=== PATIENT | male | born 1970 | race African-American/Black ===

== ENCOUNTER 2017-01-05 04:19 | Emergency (ER) | payer MEDICARE, MEDICAID ==
--- NOTE | 2017-01-05 04:47 | ER Document Report ---
ED General - General Chief Complaint: Chest Pain > 30 Stated Complaint: CHEST PAIN Time Seen by Provider: 01/05/17 04:39 Notes: Patient is a 46-year-old male that comes emergency department 2 complaints. First complaint is pain in the left side of his chest, worse with cough or deep breath, also hurts in his chest when he moves his left arm. Symptoms started yesterday. He has had a cough with some congestion for 1 week. He smokes. He denies fever. He denies shortness of breath. He denies trauma. He denies recreational drug use. He denies family history or personal history of cardiovascular disease. Second complaint is loss of vision in his right eye. He states that it started getting blurry over time but then yesterday morning he woke up and now he can only see light flashes in the right eye. Left eye vision is normal. He denies pain in his eye. TRAVEL OUTSIDE OF THE [place] IN LAST 30 DAYS: No - Related Data Allergies/Adverse Reactions: hydromorphone HCl [From Dilaudid] Allergy (Severe, Verified 01/05/17 04:30) Hives morphine [Morphine] Allergy (Severe, Verified 01/05/17 04:30) Hives Penicillins Allergy (Intermediate, Verified 01/05/17 04:30) N&V tramadol [From Ultram] Allergy (Verified 01/05/17 04:30) Home Medications: Current Home Medications No Home Medications 01/05/17 [History] Past Medical History - General Information source: Patient - Social History Smoking Status: Current Every Day Smoker Chew tobacco use (# tins/day): No Smoking Education Provided: Yes - <3 min Lives with: Family Family History: Reviewed & Not Pertinent, CAD - [place]. Patient has suicidal ideation: No Patient has homicidal ideation: No - Past Medical History Cardiac Medical History: Reports: Hx Hypertension Denies: Hx Heart Attack Pulmonary Medical History: Denies: Hx Asthma Neurological Medical History: Reports: Hx Seizures - "medication related". Denies: Hx Cerebrovascular Accident Renal/ Medical History: Denies: Hx Peritoneal Dialysis Musculoskeltal Medical History: Reports Hx Arthritis Past Surgical History: Reports: Hx Orthopedic Surgery - bilateral hip reconstruction - Immunizations Hx Diphtheria, Pertussis, Tetanus Vaccination: No Review of Systems - Review of Systems Constitutional: No symptoms reported EENT: See HPI Cardiovascular: See HPI Respiratory: See HPI Gastrointestinal: No symptoms reported Genitourinary: No symptoms reported Male Genitourinary: No symptoms reported Musculoskeletal: See HPI Skin: No symptoms reported Hematologic/Lymphatic: No symptoms reported Neurological/Psychological: No symptoms reported Physical Exam - Vital signs Vitals: Resp BP Pulse Ox 15 125/91 H 97 01/05/17 04:31 01/05/17 04:31 01/05/17 04:31 Interpretation: Normal - General General appearance: Appears well, Alert In distress: None - HEENT Head: Normocephalic, Atraumatic Eyes: Other - Right eye with a cataract noted, no discharge, clear conjunctivae , normal anterior chamber, unremarkable otherwise. Normal EOMs. Pupils: PERRL Ears: Normal Sinus: Normal Nasal: Normal Mouth/Lips: Normal Mucous membranes: Normal Pharynx: Normal Neck: Normal - Respiratory Respiratory status: No respiratory distress Chest status: Tender - Tender over the left pectoralis musculature, worse with movement of the left arm, specific with palpation and reproducible. Breath sounds: Normal. No: Decreased air movement, Nonproductive cough, Wheezing Chest palpation: Normal - Cardiovascular Rhythm: Regular. No: Tachycardia Heart sounds: Normal auscultation, S1 appreciated, S2 appreciated Murmur: No - Abdominal Inspection: Normal Distension: No distension Bowel sounds: Normal Tenderness: Nontender. No: Tender, Guarding Organomegaly: No organomegaly - Back Back: Normal, Nontender - Extremities General upper extremity: Normal inspection, Nontender, Normal color, Normal ROM , Normal temperature General lower extremity: Normal inspection, Nontender, Normal color, Normal ROM , Normal temperature, Normal weight bearing. No: Apollo's sign - Neurological Neuro grossly intact: Yes Cognition: Normal Orientation: AAOx4 Pamela Coma Scale Eye Opening: Spontaneous Pamela Coma Scale Verbal: Oriented Pamela Coma Scale Motor: Obeys Commands [place] Coma Scale Total: 15 Speech: Normal Motor strength normal: LUE, RUE, LLE, RLE Sensory: Normal - Psychological Associated symptoms: Normal affect, Normal mood - Skin Skin Temperature: Warm Skin Moisture: Dry Skin Color: Normal Course - Re-evaluation Re-evalutation: Patient with very reproducible chest wall tenderness specifically over the left pectoralis muscle, worse with movement of the arm and palpation over the area. Patient with occasional mild cough, mild congestion. Normal neurological exam, he is well-appearing, he does not appear to be in any distress. Vital signs unremarkable. EKG showing sinus rhythm, right bundle branch block, no T-wave inversions or ST segment changes, no significant change from prior. Chest x-ray unremarkable. CBC, chemistry generally unremarkable, troponin is negative despite patient reporting constant symptoms for 2 days. Appears to be musculoskeletal. Very low suspicion of ACS. Patient does reported visual loss with only single light with his right eye. On examination he clearly has a cataract. This is fairly surprising but consistent with his symptoms. Discussed with Dr. Munoz. Patient will be referred to ophthalmology for close follow-up. Urged patient that he definitely should have this performed because of his age and to make sure there is no other abnormality in addition to the cataract. Patient states that he will follow closely. Discussed all details of workup, patient treated with dexamethasone and Toradol for his symptoms, patient states understanding and agreement. - Vital Signs Vital signs: Temp Pulse Resp BP Pulse Ox 17 118/91 H 94 01/05/17 05:01 01/05/17 05:01 01/05/17 05:01 - Laboratory Result Diagrams: 01/05/17 04:40 01/05/17 04:40 Laboratory results interpreted by me: 01/05/17 01/05/17 04:40 04:40 MCV 99 H MCH 34.2 H Sodium 145.1 H Calcium 10.3 H Discharge - Discharge Clinical Impression: Cough, Left-sided chest wall pain, Change in vision Condition: Stable Disposition: HOME, SELF-CARE Additional Instructions: Your workup does not show any concerning abnormalities. Your examination indicates pain over her left pectoralis chest wall muscle, this is most likely from your upper respiratory infection, this appears to be viral, no evidence of pneumonia or bacterial infection on your workup. You have been treated for this , take [id number] medication to help with cough and pain for symptom management. Your eye examination is consistent with a cataract. Follow-up closely with the ophthalmology referral, call for your appointment. Stop smoking, follow-up with primary care, return to emergency department for any concerning or worsening symptoms including difficulty breathing, spiking fever, increased pain, vomiting, or any other concerning symptoms. Referrals: SUSANA HAWKINS MD [ACTIVE STAFF] - Follow up in 3-5 days
[2017-01-05 05:03] LABS: ABSOLUTE LYMPHOCYTES (AUTO) 2.4 10^3/uL (0.5-4.7); ABSOLUTE MONOCYTES (AUTO) 0.6 10^3/uL (0.1-1.4); ABSOLUTE NEUT (AUTO) 3.1 10^3/uL (1.7-8.2); BASOPHILS % (AUTO) 0.8 % (0-2); EOSINOPHILS % (AUTO) 0.6 % (0-6); HEMATOCRIT 45.6 % (37.9-51.0); HEMOGLOBIN 15.7 g/dL (13.5-17.0); HGB HCT DIFFERENCE 1.5; LYMPHOCYTES % (AUTO) 39.1 % (13-45); MEAN CORPUSCULAR HEMOGLOBIN 34.2 pg (27.0-33.4); MEAN CORPUSCULAR HGB CONC 34.5 g/dL (32.0-36.0); MEAN CORPUSCULAR VOLUME 99 fl (80-97); MONOCYTES % (AUTO) 9.4 % (3-13); RED BLOOD COUNT 4.61 10^6/uL (4.35-5.55); RED CELL DISTRIBUTION WIDTH 12.9 % (11.5-14.0); SEGMENTED NEUTROPHILS % (AUTO) 50.1 % (42-78); WHITE BLOOD COUNT 6.2 10^3/uL (4.0-10.5)
[2017-01-05 05:16] LABS: ALANINE AMINOTRANSFERASE 49 U/L (21-72); ALBUMIN 4.9 g/dL (3.5-5.0); ALKALINE PHOSPHATASE 79 U/L (38-126); ANION GAP 15 (5-19); ASPARTATE AMINO TRANSFERASE 25 U/L (17-59); BILIRUBIN,DIRECT 0.3 mg/dL (0.0-0.4); BLOOD UREA NITROGEN 16 mg/dL (7-20); CALCIUM 10.3 mg/dL (8.4-10.2); CARBON DIOXIDE 27 mmol/L (22-30); CHLORIDE 103 mmol/L (98-107); CREATINE KINASE 132 U/L (55-170); CREATININE RESULT 0.82 mg/dL (0.52-1.25); GLUCOSE 101 mg/dL (75-110); POTASSIUM 3.8 mmol/L (3.6-5.0); SODIUM 145.1 mmol/L (137-145); TOTAL PROTEIN 7.6 g/dL (6.3-8.2)
--- NOTE | 2017-01-05 05:28 | RADIOLOGY REPORT (SQ) ---
EXAM DESCRIPTION: CHEST SINGLE VIEW COMPLETED DATE/TIME: 01/05/2017 5:03 am REASON FOR STUDY: er 17 chest pain COMPARISON: 04/25/2015. EXAM PARAMETERS: NUMBER OF VIEWS: One view. TECHNIQUE: Single frontal radiographic view of the chest acquired. RADIATION DOSE: NA LIMITATIONS: None. FINDINGS: LUNGS AND PLEURA: No opacities, masses or pneumothorax. No pleural effusion. MEDIASTINUM AND HILAR STRUCTURES: No masses. Contour normal. HEART AND VASCULAR STRUCTURES: Heart normal in size. Normal vasculature. BONES: No acute findings. HARDWARE: None in the chest. OTHER: No other significant finding. IMPRESSION: NO ACUTE RADIOGRAPHIC FINDING IN THE CHEST. TECHNICAL DOCUMENTATION: JOB ID: [id number] [employer]- All Rights Reserved
[2017-01-05 05:36] LABS: CREATINE KINASE MB 0.83 ng/mL (<4.55); TROPONIN I < 0.012 ng/mL
[2017-01-05] MEDS ORDERED: DEXAMETHASONE SOD PHOS INJ 10 MG/1 ML VIAL IV ONE (05:43)
[2017-01-05] MEDS ORDERED: KETOROLAC TROMETHAMINE INJ/PF 30 MG/1 ML SDV IV ONE (05:43)
[2017-01-05 05:58] VITALS: BP 118/91
--- NOTE | 2017-01-05 19:29 | EKG REPORT ---
SEVERITY:- ABNORMAL ECG - SINUS RHYTHM PROBABLE LEFT ATRIAL ABNORMALITY INCOMPLETE RIGHT BUNDLE BRANCH BLOCK : Confirmed by: Rachel Garcia MD 05-Jan-2017 19:28:52
== END 2017-01-05 06:00 | disposition home or self-care (01) ==
LOC: ER 04:19
DX: R05 Cough (principal); R07.89 Other chest pain; H53.9 Unspecified visual disturbance; F17.200 Nicotine dependence, unspecified, uncomplicated; I10 Essential (primary) hypertension; Z88.6 Allergy status to analgesic agent; Z88.0 Allergy status to penicillin
CPT/HCPCS: 93005; 99285; 96374; 96375; 36415; 82553; 82550; 85025; 80053; 84484; 71010; 93010; J1885; J1100

== ENCOUNTER 2017-02-12 22:01 | Emergency (ER) | payer OTHER, MEDICARE, MEDICAID ==
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
[2017-02-13] MEDS ORDERED: FENTANYL CITRATE INJ/PF 100 MCG/2 ML AMPUL IV ONE (00:22)
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
[2017-02-13] MEDS ORDERED: OXYCODONE HCL IR 5 MG TABLET PO ONE (01:54)
[2017-02-13 03:46] VITALS: BP 146/82
== END 2017-02-13 03:44 | disposition home or self-care (01) ==
LOC: ER 22:01
DX: S82.434A Nondisplaced oblique fracture of shaft of right fibula, initial encounter for closed fracture (principal); S90.511A Abrasion, right ankle, initial encounter; M25.561 Pain in right knee; M25.571 Pain in right ankle and joints of right foot; Y03.0XXA Assault by being hit or run over by motor vehicle, initial encounter; Y93.89 Activity, other specified; Y92.008 Other place in unspecified non-institutional (private) residence as the place of occurrence of the external cause; F17.200 Nicotine dependence, unspecified, uncomplicated; Z98.890 Other specified postprocedural states; Z88.5 Allergy status to narcotic agent
CPT/HCPCS: 99283; 73590; L1830

== ENCOUNTER → 2017-04-27 | Outpatient (CLI) | payer MEDICARE, MEDICAID, OTHER ==
[2017-04-27 11:50] LABS: ABSOLUTE EOSINOPHILS # (AUTO) 0.1 10^3/uL (0.0-0.6); ABSOLUTE LYMPHOCYTES (AUTO) 2.2 10^3/uL (0.5-4.7); ABSOLUTE MONOCYTES (AUTO) 0.5 10^3/uL (0.1-1.4); ABSOLUTE NEUT (AUTO) 3.1 10^3/uL (1.7-8.2); BASOPHILS % (AUTO) 0.8 % (0-2); EOSINOPHILS % (AUTO) 1.5 % (0-6); HEMATOCRIT 39.9 % (37.9-51.0); HEMOGLOBIN 13.3 g/dL (13.5-17.0); LYMPHOCYTES % (AUTO) 37.2 % (13-45); MEAN CORPUSCULAR HEMOGLOBIN 32.9 pg (27.0-33.4); MEAN CORPUSCULAR HGB CONC 33.3 g/dL (32.0-36.0); MEAN CORPUSCULAR VOLUME 99 fl (80-97); PLATELET COUNT 278 10^3/uL (150-450); RED BLOOD COUNT 4.04 10^6/uL (4.35-5.55); RED CELL DISTRIBUTION WIDTH 12.5 % (11.5-14.0); SEGMENTED NEUTROPHILS % (AUTO) 51.5 % (42-78); TOTAL CELLS COUNTED % (AUTO) 100 %
[2017-04-27 12:00] LABS: APPEARANCE,URINE CLEAR; BILIRUBIN,URINE NEGATIVE (NEGATIVE); COLOR,URINE YELLOW; GLUCOSE, URINE NEGATIVE (NEGATIVE); KETONES,URINE NEGATIVE (NEGATIVE); LEUKOCYTE ESTERASE,URINE NEGATIVE (NEGATIVE); NITRITE,URINE NEGATIVE (NEGATIVE); PROTEIN,URINE NEGATIVE (NEGATIVE); URINE SPECIFIC GRAVITY 1.015
--- NOTE | 2017-04-27 12:04 | RADIOLOGY REPORT (SQ) ---
EXAM DESCRIPTION: CHEST PA/LATERAL COMPLETED DATE/TIME: 04/27/2017 10:59 am REASON FOR STUDY: PRE OP COMPARISON: AP upright view. 01/05/2017. EXAM PARAMETERS: NUMBER OF VIEWS: two views TECHNIQUE: Digital Frontal and Lateral radiographic views of the chest acquired. RADIATION DOSE: NA LIMITATIONS: none FINDINGS: LUNGS AND PLEURA: No acute infiltrates or effusions. Minimal bilateral pleural thickening . MEDIASTINUM AND HILAR STRUCTURES: No masses or contour abnormalities. HEART AND VASCULAR STRUCTURES: The heart is normal with normal pulmonary vasculature. . BONES: No acute findings. HARDWARE: None in the chest. OTHER: No other significant finding. IMPRESSION: NO ACUTE DISEASE. TECHNICAL DOCUMENTATION: JOB ID: [id number] 2010 [employer]- All Rights Reserved Reading location - IP/workstation name: [email or web address]
[2017-04-27 12:20] LABS: ANION GAP 8 (5-19); BLOOD UREA NITROGEN 17 mg/dL (7-20); CALCIUM 9.9 mg/dL (8.4-10.2); CARBON DIOXIDE 32 mmol/L (22-30); CHLORIDE 103 mmol/L (98-107); GLUCOSE 55 mg/dL (75-110); POTASSIUM 4.3 mmol/L (3.6-5.0); SODIUM 142.7 mmol/L (137-145)
--- NOTE | 2017-04-27 13:16 | EKG REPORT ---
SEVERITY:- NORMAL ECG - SINUS RHYTHM ST ELEV, PROBABLE NORMAL EARLY REPOL PATTERN : Confirmed by: Eric Mera MD 27-Apr-2017 13:15:51
== END ==
LOC: OD 10:29
PROVIDERS: ATTEND Orthopaedic Surgery
DX: Z01.810 Encounter for preprocedural cardiovascular examination (principal); Z01.812 Encounter for preprocedural laboratory examination; Z01.818 Encounter for other preprocedural examination
CPT/HCPCS: 36415; 71046; 80048; 81001; 85025; 93005; 93010

== ENCOUNTER 2017-06-13 10:00 | Inpatient (IN) | payer OTHER, MEDICARE, MEDICAID ==
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
[2017-06-22] MEDS ORDERED: BUPIVACAINE INJ/PF LIPOSOME/PF 266 MG/20 ML SDV INJ PRN (05:00)
[2017-06-22] MEDS ORDERED: LACTATED RINGERS 1000 ML IV PRN (05:00)
[2017-06-22] MEDS ORDERED: BUPIVACAINE INJ/PF LIPOSOME/PF 266 MG/20 ML SDV ONE (09:10)
[2017-06-22] MEDS ORDERED: THROMBIN (BOVINE) TOPICAL 20000 UNIT VIAL ONE (09:10)
[2017-06-22] MEDS ORDERED: THROMBIN (BOVINE) 5000 UNIT EPITAXIS KIT ONE (09:10)
[2017-06-22] MEDS: OXYCODONE HCL SR 10 MG TABLET PO PRN ×3 (09:30→21:09)
[2017-06-22] MEDS: LANSOPRAZOLE 15 MG TAB.RAP.DR PO PRN ×3 (09:30→21:09)
[2017-06-22] MEDS: VANCOMYCIN HCL 1,000 MG in DEXTROSE 5%-WATER 250 ML IV PRN ×3 (10:42→21:09)
[2017-06-22] MEDS ORDERED: FENTANYL CITRATE INJ/PF 100 MCG/2 ML AMPUL ONE (10:43)
[2017-06-22] MEDS ORDERED: MIDAZOLAM 2 MG/2 ML INJ ONE ×2 (10:44)
[2017-06-22] MEDS ORDERED: PROPOFOL INJ 200 MG/20 ML VIAL IV ONE (10:44)
[2017-06-22] MEDS ORDERED: TRANEXAMIC ACID INJ/PF 1,000 MG/10 ML SDV IV ONE ×3 (10:44→15:00)
[2017-06-22] MEDS ORDERED: DEXAMETHASONE SOD PHOSPHATE INJ 4 MG/1 ML VIAL ONE (10:44)
[2017-06-22] MEDS ORDERED: ONDANSETRON HCL INJ/PF 4 MG/2 ML SDV ONE (10:44)
[2017-06-22] MEDS ORDERED: ACETAMINOPHEN 100 ML IV ONE (10:45)
[2017-06-22] MEDS ORDERED: TETRACAINE HCL/PF 20MG/2ML AMPULE (SPINAL) ONE (10:45)
[2017-06-22] MEDS ORDERED: MORPHINE SULFATE 10 MG/ML INJ ONE (10:45)
[2017-06-22] MEDS: CLINDAMYCIN 600 MG/D5W RTU 600 MG/50 ML RTUPB IV PRN ×5 (11:52→21:16)
[2017-06-22] MEDS: IBUPROFEN 800 MG in NORMAL SALINE 250 ML IV PRN ×3 (12:16→21:09)
[2017-06-22] MEDS ORDERED: MEPERIDINE HCL/PF INJ 25 MG/1 ML DISP.SYRIN IV PRN (12:33)
[2017-06-22] MEDS ORDERED: PROMETHAZINE HCL INJ 25 MG/1 ML VIAL IV PRN ×2 (12:33)
[2017-06-22] MEDS ORDERED: FENTANYL CITRATE INJ/PF 100 MCG/2 ML AMPUL IV PRN ×3 (12:33)
[2017-06-22] MEDS ORDERED: DIPHENHYDRAMINE HCL 50 MG/ML VIAL IV PRN (12:33)
[2017-06-22] MEDS ORDERED: ONDANSETRON 4 MG TAB.RAPDIS PO PRN (13:11)
[2017-06-22] MEDS ORDERED: MAG HYDROX/AL HYDROX/SIMETH SUSP 30 ML UDCUP PO PRN (13:11)
[2017-06-22] MEDS ORDERED: ZOLPIDEM TARTRATE 5 MG TABLET PO PRN (13:11)
[2017-06-22] MEDS ORDERED: ACETAMINOPHEN 325 MG TABLET PO PRN (13:11)
[2017-06-22] MEDS ORDERED: ONDANSETRON HCL INJ/PF 4 MG/2 ML SDV IV PRN (13:11)
--- NOTE | 2017-06-22 13:11 | Operative Report ---
Operative Report DATE OF SURGERY: 06/22/17 PREOPERATIVE DIAGNOSIS: Right knee arthritis OPERATION: Right knee arthroplasty SURGEON: JEREMY FRANK ANESTHESIA: Spinal TISSUE REMOVED OR ALTERED: Bone to pathology ESTIMATED BLOOD LOSS: 100 PROCEDURE: Implants used: Femur: Pam triathlon size 8 CR femur Tibia: 7 tibia Tibial liner: 11 mm CS insert Patella: 38 mm oval patella Procedure with the patient supine on the operating table the right the limb is prepped and draped in a sterile fashion. The limb was elevated for exsanguination and the tourniquet inflated to 280 torr. A standard midline median parapatellar approach the knee is taken. Access is gained to the femoral canal through the intercondylar notch. Intramedullary alignment instrumentation used to resect 10 mm of distal femur in 5 of valgus. Sizing guide indicated a size 8 femur. Appropriate cutting jig is then used to fashion anterior posterior and chamfer cuts. A trial reduction femurs performed and this is judged to be adequate. Attention was next turned to the tibia. Using an extra medullary alignment system 9 millimeters was resected off the lateral tibial plateau. This is sized to a size 7 tibia. A trial reduction was now performed with a 8 femur and a 7 tibia using a 11 millimeters spacer. It is full extension and central patellofemoral tracking. The articular surface the patella was next resected using an oscillating saw. All trial implants were removed. Polymethylmethacrylate is mixed and used to cement the above implants in place. On adequate curing the cement excess cement was removed the tourniquet was deflated hemostasis obtained the wound is then closed in layers using interrupted Vicryl followed by khushi. A sterile compressive dressing was applied and the patient returned to recovery room in satisfactory condition.
[2017-06-22] MEDS: FENTANYL CITRATE INJ/PF 100 MCG/2 ML AMPUL ONE ×3 (13:58→14:23)
--- NOTE | 2017-06-22 15:04 | RADIOLOGY REPORT (SQ) ---
EXAM DESCRIPTION: KNEE RIGHT 2 VIEWS COMPLETED DATE/TIME: 06/22/2017 2:14 pm REASON FOR STUDY: Post OP -Long Cassette in PACU M17.4 OTHER BILATERAL SECONDARY OSTEOARTHRITIS OF KNEE COMPARISON: None. NUMBER OF VIEWS: Two view(s). TECHNIQUE: Digital radiographic images of the right knee post-procedure. LIMITATIONS: None. FINDINGS: BONES: No worrisome or unexpected findings post-procedure. DEVICE: Total knee arthroplasty SOFT TISSUES: No worrisome findings. Expected postoperative soft tissue changes. IMPRESSION: SATISFACTORY POSTOPERATIVE RIGHT KNEE. TECHNICAL DOCUMENTATION: JOB ID: [id number] [employer]- All Rights Reserved Reading location - IP/workstation name: [email or web address][email or web address]
[2017-06-22] MEDS: RINGERS SOLUTION,LACTATED 1,000 ML IV PRN (16:05)
[2017-06-22] MEDS: FENTANYL CITRATE INJ/PF 100 MCG/2 ML AMPUL IV PRN ×3 (16:24→22:31)
[2017-06-22] MEDS: OXYCODONE HCL IR 5 MG TABLET PO PRN (18:00)
[2017-06-22] MEDS: SENNOSIDES/DOCUSATE 8.6-50 MG 1 EACH TABLET PO SCH (18:01)
[2017-06-22] MEDS: PREGABALIN 75 MG CAPSULE PO SCH (18:01)
[2017-06-22] MEDS: IBUPROFEN 800 MG in NORMAL SALINE 250 ML IV SCH (18:01)
[2017-06-22] MEDS ORDERED: FENTANYL 100 MCG/HR PATCH.TD72 TD ONE (20:30)
[2017-06-22] MEDS: OXYCODONE HCL SR 10 MG TABLET PO SCH (21:14)
[2017-06-23] MEDS: OXYCODONE HCL IR 5 MG TABLET PO PRN ×4 (01:05→21:09)
[2017-06-23] MEDS: FENTANYL CITRATE INJ/PF 100 MCG/2 ML AMPUL IV PRN ×3 (01:05→08:53)
[2017-06-23] MEDS ORDERED: VANCOMYCIN HCL 1,000 MG in DEXTROSE 5%-WATER 250 ML IV ONE (01:11)
[2017-06-23] MEDS: DIPHENHYDRAMINE HCL 50 MG/ML VIAL IV PRN ×2 (02:32→20:15)
[2017-06-23] MEDS: IBUPROFEN 800 MG in NORMAL SALINE 250 ML IV SCH ×3 (02:33→18:46)
[2017-06-23] MEDS: LANSOPRAZOLE 15 MG TAB.RAP.DR PO PRN ×3 (03:40→05:23)
[2017-06-23] MEDS: OXYCODONE HCL SR 10 MG TABLET PO PRN ×3 (03:40→05:23)
[2017-06-23] MEDS: LANSOPRAZOLE 30 MG TAB.RAP.DR PO SCH (05:20)
[2017-06-23] MEDS: RINGERS SOLUTION,LACTATED 1,000 ML IV PRN (05:22)
[2017-06-23 06:45] LABS: HEMATOCRIT 37.6 % (37.9-51.0); HEMOGLOBIN 12.6 g/dL (13.5-17.0); MEAN CORPUSCULAR HEMOGLOBIN 33.6 pg (27.0-33.4); MEAN CORPUSCULAR HGB CONC 33.7 g/dL (32.0-36.0); MEAN CORPUSCULAR VOLUME 100 fl (80-97); PLATELET COUNT 255 10^3/uL (150-450); RED BLOOD COUNT 3.76 10^6/uL (4.35-5.55); RED CELL DISTRIBUTION WIDTH 12.8 % (11.5-14.0); WHITE BLOOD COUNT 10.6 10^3/uL (4.0-10.5)
[2017-06-23 07:08] LABS: ANION GAP 10 (5-19); BLOOD UREA NITROGEN 9 mg/dL (7-20); CALCIUM 9.5 mg/dL (8.4-10.2); CARBON DIOXIDE 28 mmol/L (22-30); CHLORIDE 101 mmol/L (98-107); GLUCOSE 113 mg/dL (75-110); POTASSIUM 3.8 mmol/L (3.6-5.0)
--- NOTE | 2017-06-23 07:20 | PDOC PROGRESS REPORT ---
Subjective Progress Note for:: 06/23/17 Reason For Visit: RIGHT KNEE ARTHRITIS 46-year-old black male status post right knee arthroplasty postop day 1. Complaints of uncontrollable pain have predominated his postoperative course. He was not seen by physical therapy yesterday. He has not been mobilized. Physical Exam Vital Signs: Temp Pulse Resp BP Pulse Ox 36.4 C 83 20 148/88 H 94 06/23/17 04:00 06/23/17 04:00 06/23/17 04:00 06/23/17 04:00 06/23/17 04:00 Intake & Output 06/21/17 06/22/17 06/23/17 06:59 06:59 06:59 Intake Total 5246 Output Total 3750 Balance 1496 Weight 110 kg General appearance: PRESENT: mild distress Head exam: PRESENT: normocephalic Respiratory exam: PRESENT: unlabored Cardiovascular exam: PRESENT: RRR Pulses: PRESENT: +1 pedal pulses bilateral Vascular exam: PRESENT: normal capillary refill GI/Abdominal exam: PRESENT: soft Rectal exam: PRESENT: deferred Extremities exam: PRESENT: other - Right lower extremity dressing is clean dry and intact. Distal neurovascular examination is intact. Neurological exam: PRESENT: alert, awake, oriented to person, oriented to place , oriented to time, oriented to situation. ABSENT: motor sensory deficit Psychiatric exam: PRESENT: agitated Skin exam: PRESENT: dry, intact, warm. ABSENT: cyanosis, rash Results Laboratory Results: 06/23/17 06:14 06/23/17 06:14 WBC 10.6 H RBC 3.76 L Hgb 12.6 L Hct 37.6 L MCV 100 H MCH 33.6 H MCHC 33.7 RDW 12.8 Plt Count 255 Impressions: Knee X-Ray 06/22/17 13:13 IMPRESSION: SATISFACTORY POSTOPERATIVE RIGHT KNEE. Status: Imported from PACS Assessment & Plan - Diagnosis (1) Arthritis of right knee Is this a current diagnosis for this admission?: Yes Plan: 46-year-old black male postop day 1 right knee arthroplasty. Patient had a prolonged spinal anesthetic was not seen by physical therapy yesterday. He has not yet been mobilized.. Ongoing issues with pain control in spite of significant amounts of narcotic medication topically, orally, and intravenously. At this point I am not comfortable increasing his narcotic medication dose. Patient will be mobilized with physical therapy today and anticipate discharge home tomorrow with home health services. He will continue on with his inpatient status - Time Time Spent with patient: 15-24 minutes Anticipated discharge: Home with Homehealth Within: within 24 hours
[2017-06-23] MEDS: PREGABALIN 75 MG CAPSULE PO SCH ×2 (10:05→18:46)
[2017-06-23] MEDS: ASPIRIN 81 MG TABLET, ENT COATED PO SCH (10:06)
[2017-06-23] MEDS: PRENATAL VITAMIN W DHA CAPSULE PO SCH (10:06)
[2017-06-23] MEDS: OXYCODONE HCL SR 10 MG TABLET PO SCH (10:06)
[2017-06-23] MEDS: LISINOPRIL 5 MG TABLET PO SCH (10:06)
[2017-06-23] MEDS: SENNOSIDES/DOCUSATE 8.6-50 MG 1 EACH TABLET PO SCH ×2 (10:06→18:46)
[2017-06-23] MEDS: OXYCODONE HCL SR 40 MG TABLET PO SCH (22:02)
[2017-06-24 00:22] VITALS: BP 134/82
[2017-06-24] MEDS: IBUPROFEN 800 MG in NORMAL SALINE 250 ML IV SCH ×2 (01:26→10:02)
[2017-06-24] MEDS: OXYCODONE HCL IR 5 MG TABLET PO PRN (04:19)
[2017-06-24] MEDS: DIPHENHYDRAMINE HCL 50 MG/ML VIAL IV PRN (04:25)
[2017-06-24 05:17] LABS: HEMATOCRIT 39.4 % (37.9-51.0); HEMOGLOBIN 13.4 g/dL (13.5-17.0); MEAN CORPUSCULAR HEMOGLOBIN 33.7 pg (27.0-33.4); MEAN CORPUSCULAR HGB CONC 34.2 g/dL (32.0-36.0); MEAN CORPUSCULAR VOLUME 99 fl (80-97); PLATELET COUNT 251 10^3/uL (150-450); RED BLOOD COUNT 3.99 10^6/uL (4.35-5.55); RED CELL DISTRIBUTION WIDTH 12.6 % (11.5-14.0); WHITE BLOOD COUNT 13.1 10^3/uL (4.0-10.5)
[2017-06-24] MEDS: LANSOPRAZOLE 30 MG TAB.RAP.DR PO SCH (05:32)
--- NOTE | 2017-06-24 06:52 | PDOC DISCHARGE SUMMARY ---
General - Admit/Disc Date/PCP Admission Date/Primary Care Provider: 06/22/17 09:31 BERNICE OLIVERA PA-C Discharge Date: 06/24/17 - Discharge Diagnosis (1) Arthritis of right knee Is this a current diagnosis for this admission?: Yes - Additional Information Resuscitation Status: Full Code Discharge Diet: As Tolerated, Regular Discharge Activity: Balance Activity w/Rest, No Driving, No tub bath Home Medications: Cyclobenzaprine HCl [Flexeril 10 mg Tablet] 10 mg PO DAILYP PRN 06/22/17 Lisinopril [Prinivil 10 mg Tablet] 10 mg PO DAILY 06/22/17 Oxycodone HCl/Acetaminophen [Oxycodone-Acetaminophen 5-325] 1 tab PO Q8HP PRN Aspirin [Ecotrin 81 mg EC Tablet] 81 mg PO DAILY tabec 06/24/17 Oxycodone HCl [Oxy-Ir 5 mg Tablet] 5 mg PO Q6HP PRN tablet 06/24/17 Oxycodone HCl [Oxycontin Sr 40 mg Tablet] 40 mg PO Q12 tab.sr.12h 06/24/17 History of Present Illness History of Present Illness: ROMI ELDER is a 46 year old male with progressive right knee pain and functional disability secondary osteoarthritis. Patient is admitted for elective right knee arthroplasty. Hospital Course Hospital Course: Patient is admitted through the operating room and undergoes uncomplicated right knee arthroplasty. Is returned to floor in satisfactory condition. In spite of being maintained on transdermal, oral, and IV analgesic medications the patient's pain is poorly controlled. He is not seen by physical therapy on the day of surgery because of prolonged spinal anesthetic. He subsequent seen on postop day 1 and is able to ambulate effectively. Dressing remains clean dry and intact. Physical Exam Vital Signs: Temp Pulse Resp BP Pulse Ox 37.1 C 104 H 13 134/82 H 92 06/24/17 00:00 06/24/17 00:00 06/24/17 00:00 06/24/17 00:00 06/24/17 00:00 Intake & Output 06/22/17 06/23/17 06/24/17 06:59 06:59 06:59 Intake Total 6051 2282 Output Total 9526 4520 Balance 2348 -2868 Weight 110 kg General appearance: PRESENT: mild distress Head exam: PRESENT: normocephalic Respiratory exam: PRESENT: unlabored Cardiovascular exam: PRESENT: RRR Pulses: PRESENT: normal dorsalis pedis pul Vascular exam: PRESENT: normal capillary refill GI/Abdominal exam: PRESENT: soft Rectal exam: PRESENT: deferred Extremities exam: PRESENT: other - Right lower extremity knee dressing is clean dry and intact. Minimal pedal edema. Neurological exam: PRESENT: alert, awake, oriented to person, oriented to place , oriented to time, oriented to situation, CN II-XII grossly intact. ABSENT: motor sensory deficit Psychiatric exam: PRESENT: agitated Skin exam: PRESENT: dry, intact, warm. ABSENT: cyanosis, rash Results Laboratory Results: 06/24/17 04:54 06/23/17 06:14 06/23/17 06/23/17 06/24/17 06:14 06:14 04:54 WBC 10.6 H 13.1 H RBC 3.76 L 3.99 L Hgb 12.6 L 13.4 L Hct 37.6 L 39.4 MCV 100 H 99 H MCH 33.6 H 33.7 H MCHC 33.7 34.2 RDW 12.8 12.6 Plt Count 255 251 Sodium 139.0 Potassium 3.8 Chloride 101 Carbon Dioxide 28 Anion Gap 10 BUN 9 Creatinine 0.60 Est GFR ( Amer) > 60 Est GFR (Non-Af Amer) > 60 Glucose 113 H Calcium 9.5 Impressions: Knee X-Ray 06/22/17 13:13 IMPRESSION: SATISFACTORY POSTOPERATIVE RIGHT KNEE. Status: Imported from PACS Qualifiers - * PATIENT BEING DISCHARGED WITH ANY OF THE FOLLOWING DIAGNOSIS: No VTE patient discharged on overlapping Therapy?: Yes Stroke Pt being discharged on Anti-thrombolytic therapy?: Yes Plan Discharge Plan: Patient to be discharged home with home health services and DME. Follow-up with Dr. Rasheed Hickman Hilbert for surgery in 2 weeks for staple removal.
[2017-06-24] MEDS: OXYCODONE HCL SR 40 MG TABLET PO SCH (09:55)
[2017-06-24] MEDS: PRENATAL VITAMIN W DHA CAPSULE PO SCH (09:56)
[2017-06-24] MEDS: LISINOPRIL 5 MG TABLET PO SCH (09:57)
[2017-06-24] MEDS: SENNOSIDES/DOCUSATE 8.6-50 MG 1 EACH TABLET PO SCH (09:57)
[2017-06-24] MEDS: PREGABALIN 75 MG CAPSULE PO SCH (09:58)
[2017-06-24] MEDS: ASPIRIN 81 MG TABLET, ENT COATED PO SCH (09:58)
[2017-06-25] MEDS ORDERED: FENTANYL 100 MCG/HR PATCH.TD72 TD SCH (10:00)
== END 2017-06-24 11:10 | disposition home health service (06) | DRG 470 ==
LOC: INOR 06-22 09:31 → 4S 06-22 15:05
PROVIDERS: ADMIT Orthopaedic Surgery; ATTEND Orthopaedic Surgery
PROC: 0SRC0J9 Replacement of Right Knee Joint with Synthetic Substitute, Cemented, Open Approach (ICD-10-PCS; principal; 2017-06-22 11:45)
DX: M17.11 Unilateral primary osteoarthritis, right knee (principal); I10 Essential (primary) hypertension; G89.18 Other acute postprocedural pain; M54.17 Radiculopathy, lumbosacral region; M54.14 Radiculopathy, thoracic region; F32.9 Major depressive disorder, single episode, unspecified; F41.9 Anxiety disorder, unspecified; F17.200 Nicotine dependence, unspecified, uncomplicated; G89.4 Chronic pain syndrome; Z79.899 Other long term (current) drug therapy; Z88.6 Allergy status to analgesic agent
CPT/HCPCS: 01402; 36415; 80048; 85027; 88305; 88311; 94799; C9290; G8978-GP; G8979-GP; G8987-GO; G8988-GO; G8989-GO; J0131; J1100; J1200; J1741; J2250; J2270; J2405; J2704; J3010; J3370; J3490; J7050; J7060; J7120

== ENCOUNTER → 2017-06-16 | Outpatient (CLI) | payer OTHER, MEDICARE, MEDICAID ==
[2017-06-16 12:06] LABS: ABSOLUTE BASOPHILS # (AUTO) 0.1 10^3/uL (0.0-0.2); ABSOLUTE EOSINOPHILS # (AUTO) 0.1 10^3/uL (0.0-0.6); ABSOLUTE LYMPHOCYTES (AUTO) 2.4 10^3/uL (0.5-4.7); ABSOLUTE MONOCYTES (AUTO) 0.5 10^3/uL (0.1-1.4); BASOPHILS % (AUTO) 1.1 % (0-2); EOSINOPHILS % (AUTO) 2.1 % (0-6); HEMATOCRIT 45.7 % (37.9-51.0); HEMOGLOBIN 15.5 g/dL (13.5-17.0); LYMPHOCYTES % (AUTO) 47.3 % (13-45); MEAN CORPUSCULAR HEMOGLOBIN 33.6 pg (27.0-33.4); MEAN CORPUSCULAR HGB CONC 33.8 g/dL (32.0-36.0); MEAN CORPUSCULAR VOLUME 99 fl (80-97); PLATELET COUNT 321 10^3/uL (150-450); RED CELL DISTRIBUTION WIDTH 12.9 % (11.5-14.0); SEGMENTED NEUTROPHILS % (AUTO) 40.5 % (42-78); TOTAL CELLS COUNTED % (AUTO) 100 %
[2017-06-16 12:11] LABS: APPEARANCE,URINE CLOUDY; BILIRUBIN,URINE NEGATIVE (NEGATIVE); COLOR,URINE YELLOW; GLUCOSE, URINE NEGATIVE (NEGATIVE); KETONES,URINE NEGATIVE (NEGATIVE); LEUKOCYTE ESTERASE,URINE SMALL (NEGATIVE); NITRITE,URINE NEGATIVE (NEGATIVE); PROTEIN,URINE 30 mg/dL (NEGATIVE); URINE SPECIFIC GRAVITY 1.021; UROBILINOGEN,URINE NEGATIVE mg/dL (<2.0)
[2017-06-16 12:28] LABS: ANION GAP 11 (5-19); BLOOD UREA NITROGEN 18 mg/dL (7-20); CALCIUM 10.1 mg/dL (8.4-10.2); CARBON DIOXIDE 31 mmol/L (22-30); CHLORIDE 101 mmol/L (98-107); GLUCOSE 87 mg/dL (75-110); POTASSIUM 4.9 mmol/L (3.6-5.0); SODIUM 143.2 mmol/L (137-145)
== END ==
LOC: OD 11:10
PROVIDERS: ATTEND Orthopaedic Surgery
DX: Z01.812 Encounter for preprocedural laboratory examination (principal); Z01.818 Encounter for other preprocedural examination
CPT/HCPCS: 36415; 80048; 81001; 85025

== ENCOUNTER 2018-02-18 01:19 | Emergency (ER) | payer MEDICARE, MEDICAID ==
[2018-02-18 04:34] VITALS: BP 130/88
--- NOTE | 2018-02-18 07:09 | ER Document Report ---
ED General - General Chief Complaint: Drug Abuse Stated Complaint: WANTS TO GO TO REHAB Time Seen by Provider: 02/18/18 06:55 Notes: Patient is a 47-year-old male with history of substance abuse that presents to the emergency department for chief complaint of wanting rehab. Patient states that he abuses cocaine, marijuana, and alcohol and states that he wants to get into rehab. He was in rehab about 2 years ago, did get better briefly, and then fell back into his usual patterns. States he typically drinks 6 beers or more daily, and smokes marijuana on a daily basis as well as using cocaine, his last time he used cocaine, was before june. He denies having any lightheadedness, chest pain, shortness of breath, recent fevers, chills, night sweats, nausea, vomiting or abdominal pain. Denies any suicidal homicidal ideations. Denies having any hallucinations, auditory or visual. He states he just wants to get better, he is tired of being addicted to these drugs. Past Medical History: Hypertension, substance abuse Past Surgical History: Total knee arthroplasty Social History: Admits to smoking cigarettes, and drinking alcohol daily, and using marijuana and cocaine. Family History: Reviewed and noncontributory for presenting illness Allergies: Reviewed, see documented allergy list. REVIEW OF SYSTEMS: Other than noted above, the 12 point review of systems was reviewed with the patient and were negative, all pertinent findings are included in the HPI. PHYSICAL EXAMINATION: Vital signs reviewed, nursing noted reviewed. GENERAL: Well-appearing, well-nourished and in no acute distress. HEAD: Atraumatic, normocephalic. EYES: Eyes appear normal, extraocular movements intact, sclera anicteric, conjunctiva are normal. PERRLA ENT: nares patent, oropharynx clear without exudates. Moist mucous membranes. NECK: Normal range of motion, supple without lymphadenopathy LUNGS: Breath sounds clear to auscultation bilaterally and equal. No wheezes rales or rhonchi. HEART: Regular rate and rhythm without murmurs ABDOMEN: Soft, nontender, normoactive bowel sounds. No rebound, guarding, or rigidity. No masses appreciated. EXTREMITIES: Nontender, good range of motion, no pitting or edema. NEUROLOGICAL: No focal neurological deficits. Moves all extremities spontaneously Motor and sensory grossly intact on exam. PSYCH: Normal mood, normal affect. SKIN: Warm, Dry, normal turgor, no rashes or lesions noted on exposed skin TRAVEL OUTSIDE OF THE [place] IN LAST 30 DAYS: No - Related Data Allergies/Adverse Reactions: hydromorphone HCl [From Dilaudid] Allergy (Severe, Verified 06/22/17 10:16) Hives morphine [Morphine] Allergy (Severe, Verified 06/22/17 10:16) Hives Penicillins Allergy (Intermediate, Verified 06/22/17 10:16) N&V tramadol [From Ultram] Allergy (Verified 06/22/17 10:16) Past Medical History - Social History Smoking Status: Current Every Day Smoker Frequency of alcohol use: Heavy Drug Abuse: Cocaine, Prescription drugs Family History: Reviewed & Not Pertinent, CAD - [place]. Patient has suicidal ideation: No Patient has homicidal ideation: No - Past Medical History Cardiac Medical History: Reports: Hx Hypertension Denies: Hx Atrial Fibrillation, Hx Congestive Heart Failure, Hx Coronary Artery Disease, Hx Heart Attack, Hx Hypercholesterolemia, Hx Peripheral Vascular Disease, Hx Heart Murmur Pulmonary Medical History: Neurological Medical History: Reports: Hx Seizures - "medication related". Denies: Hx Cerebrovascular Accident Renal/ Medical History: Denies: Hx Peritoneal Dialysis GI Medical History: Musculoskeletal Medical History: Reports Hx Arthritis - knees, Denies Hx Fibromyalgia, Denies Hx Multiple Sclerosis, Denies Hx Muscular Dystrophy Psychiatric Medical History: Reports: Hx Post Traumatic Stress Disorder Denies: Hx Bipolar Disorder, Hx Dementia, Hx Depression, Hx Schizophrenia Traumatic Medical History: Denies: Hx Fractures Past Surgical History: Reports: Hx Orthopedic Surgery - r knee. Denies: Hx Appendectomy, Hx Bowel Surgery, Hx Cholecystectomy, Hx Coronary Artery Bypass Graft, Hx Gastric Bypass Surgery, Hx Herniorrhaphy, Hx Pacemaker, Hx Tonsillectomy - Immunizations Hx Diphtheria, Pertussis, Tetanus Vaccination: No Physical Exam - Vital signs Vitals: Temp Pulse Resp BP Pulse Ox 97.8 F 101 H 18 130/93 H 93 02/18/18 01:26 02/18/18 01:26 02/18/18 01:26 02/18/18 01:26 02/18/18 01:26 Course - Re-evaluation Re-evalutation: Patient was seen and examined, vital signs reviewed. Patient appears fatigued on exam, but no acute focal findings, blood work obtained, for clearance to enter rehab facility, was reviewed, and unremarkable, I discussed with the patient that he would need to call these rehab facilities, will provide him with the blood work, and a note stating that he is medically cleared. He was agreeable to this, he was given information about all of the local rehab facilities, and substance abuse programs, as well as mobile crisis, which he states he will call. All questions answered, I felt the patient was stable to be discharged, and to follow-up as an outpatient with substance abuse rehab facilities. - Vital Signs Vital signs: Temp Pulse Resp BP Pulse Ox 97.8 F 78 20 130/88 H 94 02/18/18 04:27 02/18/18 04:27 02/18/18 04:27 02/18/18 04:27 02/18/18 04:27 - Laboratory Result Diagrams: 02/18/18 08:00 02/18/18 08:00 Laboratory results interpreted by me: 02/18/18 02/18/18 02/18/18 02:10 08:00 08:00 RBC 4.33 L MCV 98 H Seg Neutrophils % 39.8 L Lymphocytes % 50.2 H Urine Protein 30 H Urine Blood SMALL H Salicylates < 1.0 L Acetaminophen < 10 L - EKG Interpretation by Me Additional EKG results interpreted by me: EKG demonstrates sinus rhythm with a ventricular rate of 75 bpm, normal axis, QTC 465 ms, no evidence of acute ischemia on this EKG, this is compared with prior EKG from 04/27/2017, without significant change. Discharge - Discharge Clinical Impression: Substance abuse Condition: Stable Disposition: HOME, SELF-CARE Additional Instructions: Please follow-up with 1 of the substance detox centers, a list has been provided with your paperwork, you can also call mobile crisis, and they may be able to assist you in setting you up with rehab. You have been provided with all of your blood work, and you are currently medically clear to be treated from a rehab and substance abuse standpoint. Referrals: BERNICE OLIVERA PA-C [Primary Care Provider] - Follow up in 3-5 days
[2018-02-18] MEDS ORDERED: KETOROLAC TROMETHAMINE 60 MG/2 ML SDV IM ONE (07:10)
[2018-02-18 08:15] LABS: ABSOLUTE BASOPHILS # (AUTO) 0.1 10^3/uL (0.0-0.2); ABSOLUTE EOSINOPHILS # (AUTO) 0.1 10^3/uL (0.0-0.6); ABSOLUTE LYMPHOCYTES (AUTO) 3.4 10^3/uL (0.5-4.7); ABSOLUTE MONOCYTES (AUTO) 0.5 10^3/uL (0.1-1.4); ABSOLUTE NEUT (AUTO) 2.7 10^3/uL (1.7-8.2); EOSINOPHILS % (AUTO) 1.3 % (0-6); HEMATOCRIT 42.6 % (37.9-51.0); HEMOGLOBIN 14.4 g/dL (13.5-17.0); LYMPHOCYTES % (AUTO) 50.2 % (13-45); MEAN CORPUSCULAR HEMOGLOBIN 33.2 pg (27.0-33.4); MEAN CORPUSCULAR HGB CONC 33.8 g/dL (32.0-36.0); MEAN CORPUSCULAR VOLUME 98 fl (80-97); MONOCYTES % (AUTO) 7.7 % (3-13); PLATELET COUNT 266 10^3/uL (150-450); RED BLOOD COUNT 4.33 10^6/uL (4.35-5.55); RED CELL DISTRIBUTION WIDTH 12.7 % (11.5-14.0); SEGMENTED NEUTROPHILS % (AUTO) 39.8 % (42-78); TOTAL CELLS COUNTED % (AUTO) 100 %; WHITE BLOOD COUNT 6.8 10^3/uL (4.0-10.5)
[2018-02-18 08:20] LABS: APPEARANCE,URINE CLEAR; BILIRUBIN,URINE NEGATIVE (NEGATIVE); COLOR,URINE STRAW; GLUCOSE, URINE NEGATIVE (NEGATIVE); KETONES,URINE NEGATIVE (NEGATIVE); LEUKOCYTE ESTERASE,URINE NEGATIVE (NEGATIVE); NITRITE,URINE NEGATIVE (NEGATIVE); PROTEIN,URINE 30 mg/dL (NEGATIVE); UROBILINOGEN,URINE NEGATIVE mg/dL (<2.0)
[2018-02-18 08:33] LABS: ALANINE AMINOTRANSFERASE 21 U/L (21-72); ALKALINE PHOSPHATASE 76 U/L (38-126); ANION GAP 10 (5-19); ASPARTATE AMINO TRANSFERASE 18 U/L (17-59); BILIRUBIN,DIRECT 0.2 mg/dL (0.0-0.4); BILIRUBIN,TOTAL 0.3 mg/dL (0.2-1.3); BLOOD UREA NITROGEN 15 mg/dL (7-20); CALCIUM 9.6 mg/dL (8.4-10.2); CARBON DIOXIDE 27 mmol/L (22-30); CHLORIDE 104 mmol/L (98-107); GLUCOSE 102 mg/dL (75-110); POTASSIUM 3.7 mmol/L (3.6-5.0)
[2018-02-18 08:34] LABS: ACETAMINOPHEN < 10 ug/mL (10-30); ALCOHOL < 10 mg/dL (NONE DETECTED); SALICYLATE < 1.0 mg/dL (2.0-20.0)
[2018-02-18 08:36] LABS: URINE AMPHETAMINES SCREEN NEGATIVE; URINE BARBITURATES SCREEN NEGATIVE; URINE BENZODIAZEPINES SCREEN NEGATIVE; URINE COCAINE SCREEN UNCONFIRMED POSITIVE; URINE MARIJUANA (THC) SCREEN NEGATIVE; URINE METHADONE SCREEN NEGATIVE; URINE PHENCYCLIDINE SCREEN NEGATIVE
--- NOTE | 2018-02-18 12:39 | EKG REPORT ---
SEVERITY:- ABNORMAL ECG - SINUS RHYTHM NONSPECIFIC INTRAVENTRICULAR CONDUCTION DELAY : Confirmed by: Rachel Garcia MD 18-Feb-2018 12:38:47
== END 2018-02-18 09:00 | disposition home or self-care (01) ==
LOC: ER 01:19
DX: F10.10 Alcohol abuse, uncomplicated (principal); F14.10 Cocaine abuse, uncomplicated; F12.10 Cannabis abuse, uncomplicated; F17.210 Nicotine dependence, cigarettes, uncomplicated; I10 Essential (primary) hypertension
CPT/HCPCS: 93005; 99284; 96372; 36415; 80307 ×4; 85025; 80053; 81001; 93010; J1885

== ENCOUNTER 2018-03-29 21:20 | Emergency (ER) | payer OTHER, MEDICARE, MEDICAID ==
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
[2018-03-30 02:55] VITALS: BP 136/88
[2018-03-30] MEDS ORDERED: KETOROLAC TROMETHAMINE 60 MG/2 ML SDV IM ONE (02:55)
== END 2018-03-30 03:18 | disposition home or self-care (01) ==
LOC: ER 21:20
DX: R07.81 Pleurodynia (principal); M25.512 Pain in left shoulder; M54.9 Dorsalgia, unspecified; V03.90XA Pedestrian on foot injured in collision with car, pick-up truck or van, unspecified whether traffic or nontraffic accident, initial encounter; I10 Essential (primary) hypertension; F17.200 Nicotine dependence, unspecified, uncomplicated
CPT/HCPCS: 99283; 96372; 71101; J1885

== ENCOUNTER 2018-06-01 01:29 | Emergency (ER) | payer MEDICARE, MEDICAID ==
[2018-06-01 01:51] LABS: ABSOLUTE BASOPHILS # (AUTO) 0.1 10^3/uL (0.0-0.2); ABSOLUTE LYMPHOCYTES (AUTO) 2.9 10^3/uL (0.5-4.7); ABSOLUTE MONOCYTES (AUTO) 0.8 10^3/uL (0.1-1.4); ABSOLUTE NEUT (AUTO) 4.9 10^3/uL (1.7-8.2); BASOPHILS % (AUTO) 0.9 % (0-2); EOSINOPHILS % (AUTO) 0.4 % (0-6); HEMATOCRIT 44.7 % (37.9-51.0); HEMOGLOBIN 15.6 g/dL (13.5-17.0); LYMPHOCYTES % (AUTO) 33.3 % (13-45); MEAN CORPUSCULAR HEMOGLOBIN 34.8 pg (27.0-33.4); MEAN CORPUSCULAR HGB CONC 34.8 g/dL (32.0-36.0); MEAN CORPUSCULAR VOLUME 100 fl (80-97); MONOCYTES % (AUTO) 9.3 % (3-13); PLATELET COUNT 297 10^3/uL (150-450); RED BLOOD COUNT 4.47 10^6/uL (4.35-5.55); RED CELL DISTRIBUTION WIDTH 12.5 % (11.5-14.0); SEGMENTED NEUTROPHILS % (AUTO) 56.1 % (42-78); TOTAL CELLS COUNTED % (AUTO) 100 %; WHITE BLOOD COUNT 8.7 10^3/uL (4.0-10.5)
--- NOTE | 2018-06-01 02:28 | RADIOLOGY REPORT (SQ) ---
EXAM DESCRIPTION: XR CHEST 1 VIEW COMPLETED DATE/TME: 06/01/2018 01:33 CLINICAL HISTORY: 47 years, Male, chest pain COMPARISON: 04/27/2017 chest x-ray NUMBER OF VIEWS: 1 TECHNIQUE: Portable chest LIMITATIONS: None. FINDINGS: Heart size is normal. Osteopenia. Minor scarring left lung base. Lungs are otherwise clear. No pneumothorax IMPRESSION: No acute cardiopulmonary process copyright 2010 [employer]- All Rights Reserved
[2018-06-01 02:58] LABS: ALANINE AMINOTRANSFERASE 31 U/L (21-72); ALBUMIN 4.3 g/dL (3.5-5.0); ALKALINE PHOSPHATASE 72 U/L (38-126); ANION GAP 11 (5-19); ASPARTATE AMINO TRANSFERASE 26 U/L (17-59); BILIRUBIN,DIRECT 0.4 mg/dL (0.0-0.4); BILIRUBIN,TOTAL 0.7 mg/dL (0.2-1.3); BLOOD UREA NITROGEN 16 mg/dL (7-20); CALCIUM 10.2 mg/dL (8.4-10.2); CARBON DIOXIDE 26 mmol/L (22-30); CHLORIDE 103 mmol/L (98-107); CREATINE KINASE 154 U/L (55-170); GLUCOSE 105 mg/dL (75-110); SODIUM 139.9 mmol/L (137-145); TOTAL PROTEIN 7.5 g/dL (6.3-8.2)
[2018-06-01 03:10] LABS: CREATINE KINASE MB 1.02 ng/mL (<4.55)
[2018-06-01 03:11] LABS: TROPONIN I < 0.012 ng/mL
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
--- NOTE | 2018-06-01 05:33 | ER Document Report ---
ED General - General Chief Complaint: Chest Pain Stated Complaint: CHEST PAIN AND SCROTAL PAIN Time Seen by Provider: 06/01/18 02:47 Primary Care Provider: BERNICE OLIVERA PA-C [Primary Care Provider] - Follow up as needed Mode of Arrival: Ambulatory Information source: Patient Notes: Patient is a 47-year-old male comes in emergency room with 2 major complaints the first major complaint is he has some anterior chest discomfort and #2 is he states he is got a scrotal sac abscess. Patient also told me he was here 3 weeks ago for the same presentation and they put him on Cipro and Keflex and he is still taking antibiotics and not getting better. He then tells me that he has had a little chest pain little shortness of breath along with this no history of heart problems in the past although has had a history of hypertension. He admits to still smoking at least a pack a day of cigarettes. He denies any history of diabetes. He is on Flexeril as well. Patient does not work currently he is on disability. TRAVEL OUTSIDE OF THE [place] IN LAST 30 DAYS: No - HPI Onset: This morning Onset/Duration: Gradual, Intermittent, Gone Quality of pain: Achy Severity: Mild Pain Level: 1 Associated symptoms: Earache, Fever, Rhinnorhea Exacerbated by: Denies Relieved by: Denies Similar symptoms previously: Yes Recently seen / treated by doctor: Yes - Related Data Allergies/Adverse Reactions: hydromorphone HCl [From Dilaudid] Allergy (Severe, Verified 03/29/18 21:22) Hives morphine [Morphine] Allergy (Severe, Verified 03/29/18 21:22) Hives Penicillins Allergy (Intermediate, Verified 03/29/18 21:22) N&V tramadol [From Ultram] Allergy (Verified 03/29/18 21:22) Past Medical History - General Information source: Patient - Social History Smoking Status: Current Every Day Smoker Cigarette use (# per day): Yes - 1 pack/day Chew tobacco use (# tins/day): No Smoking Education Provided: Yes Frequency of alcohol use: None Drug Abuse: None, Marijuana Lives with: Family, Grandparent(s) Family History: Reviewed & Not Pertinent, CAD - [place]. Patient has suicidal ideation: No Patient has homicidal ideation: No - Past Medical History Cardiac Medical History: Reports: Hx Hypertension Denies: Hx Atrial Fibrillation, Hx Congestive Heart Failure, Hx Coronary Artery Disease, Hx Heart Attack, Hx Hypercholesterolemia, Hx Peripheral Vascular Disease, Hx Heart Murmur Pulmonary Medical History: Neurological Medical History: Reports: Hx Seizures - "medication related". Denies: Hx Cerebrovascular Accident Renal/ Medical History: Denies: Hx Peritoneal Dialysis GI Medical History: Musculoskeletal Medical History: Reports Hx Arthritis - knees, Denies Hx Fibromyalgia, Denies Hx Multiple Sclerosis, Denies Hx Muscular Dystrophy Psychiatric Medical History: Reports: Hx Post Traumatic Stress Disorder Denies: Hx Bipolar Disorder, Hx Dementia, Hx Depression, Hx Schizophrenia Traumatic Medical History: Denies: Hx Fractures Past Surgical History: Reports: Hx Orthopedic Surgery - r knee. Denies: Hx Appendectomy, Hx Bowel Surgery, Hx Cholecystectomy, Hx Coronary Artery Bypass Graft, Hx Gastric Bypass Surgery, Hx Herniorrhaphy, Hx Pacemaker, Hx Tonsillectomy - Immunizations Hx Diphtheria, Pertussis, Tetanus Vaccination: No Review of Systems - Review of Systems Constitutional: No symptoms reported EENT: No symptoms reported Cardiovascular: See HPI, Chest pain Respiratory: No symptoms reported Gastrointestinal: No symptoms reported Genitourinary: No symptoms reported Male Genitourinary: See HPI, Other - Scrotal sac abscess Musculoskeletal: No symptoms reported Skin: See HPI, Other - Scrotal sac abscess Hematologic/Lymphatic: No symptoms reported Neurological/Psychological: No symptoms reported -: Yes All other systems reviewed and negative Physical Exam - Vital signs Vitals: Pulse Ox 97 06/01/18 01:33 Interpretation: Normal Notes: Patient's vital signs were not captured on my original time when I dictated on the chart. But his vital signs on his triage note showed a blood pressure 117/79 heart rate of 102 blood sugar 118 and O2 sat are 9596% on room air. Respiratory rate was 14. - Notes Notes: PHYSICAL EXAMINATION: GENERAL: Well-appearing, well-nourished and in no acute distress. HEAD: Atraumatic, normocephalic. EYES: Pupils equal round and reactive to light, extraocular movements intact, sclera anicteric, conjunctiva are normal. ENT: Nares patent, oropharynx clear without exudates. Moist mucous membranes. NECK: Normal range of motion, supple without lymphadenopathy LUNGS: Breath sounds clear to auscultation bilaterally and equal. No wheezes rales or rhonchi. HEART: Regular rate and rhythm without murmurs ABDOMEN: Soft, nontender, nondistended abdomen. No guarding, no rebound. No masses appreciated. Male genital exam: Space examination patient's area of main concern was a scrotal sac. On palpation of the area there is a soft spot when laying supine at the base of the scrotal sac where it attaches to the perineum patient has an area there that is slightly tender. There is no fluctuance that is palpable. There is no sign of any abscess. There does appear to be some inflamed tissue in the area and may be a little cellulitis attached to this however there is no deep palpation of a abscess that I can feel this time. The rest of my physical exam was benign as far as any findings. Examination of the structural makeup of the scrotal sac also showed no sign of epidermis inflammation or tenderness. No testicular pain or tenderness. Musculoskeletal: Normal range of motion, no pitting or edema. No cyanosis. NEUROLOGICAL: Cranial nerves grossly intact. Normal speech, normal gait. Normal sensory, motor exams PSYCH: Normal mood, normal affect. SKIN: Warm, Dry, normal turgor, no rashes or lesions noted. Course - Re-evaluation Re-evalutation: 06/01/18 05:37 Patient's cardiac workup was negative. His EKG showed normal sinus rhythm with an incomplete right bundle branch block which appears to be new. There is no indication of any type of cardio genic event. 06/01/18 05:38 Reevaluation patient shows him to be doing much better. He is awake alert and oriented x4 he has less discomfort and pain in the scrotal area and he has no chest pain whatsoever. At this time we will place him on some doxycycline change of his antibiotic regime just to make sure the cellulitis if that is what it is response. - Vital Signs Vital signs: Temp Pulse Resp BP Pulse Ox 97.6 F 22 H 126/85 H 97 06/01/18 01:47 06/01/18 04:08 06/01/18 03:01 06/01/18 04:08 - Laboratory Result Diagrams: 06/01/18 01:11 06/01/18 02:30 Laboratory results interpreted by me: 06/01/18 01:11 MCV 100 H MCH 34.8 H Discharge - Discharge Clinical Impression: Cellulitis scrotal sac Condition: Good Disposition: HOME, SELF-CARE Additional Instructions: Home. Rest. Warm moist compresses were scrotal sac area discussed. Take all the antibiotics as prescribed. Highly recommend that you follow-up with your primary care sometime this week and get a referral to a urologist or a general surgeon to take a look at this area to see if there is anything to cut into. Given concerns or problems return to ER for recheck. Prescriptions: Doxycycline Hyclate 100 mg PO BID 20 Days #10 capsule Referrals: BERNICE OLIVERA PA-C [Primary Care Provider] - Follow up as needed
[2018-06-01 06:17] VITALS: BP 141/86
--- NOTE | 2018-06-01 15:31 | EKG REPORT ---
SEVERITY:- ABNORMAL ECG - SINUS RHYTHM INCOMPLETE RIGHT BUNDLE BRANCH BLOCK : Confirmed by: Rachel Garcia MD 01-Jun-2018 15:31:27
== END 2018-06-01 06:10 | disposition home or self-care (01) ==
LOC: ER 01:29
DX: N49.2 Inflammatory disorders of scrotum (principal); R07.9 Chest pain, unspecified; N50.82 Scrotal pain; R06.02 Shortness of breath; H92.09 Otalgia, unspecified ear; R50.9 Fever, unspecified; R09.89 Other specified symptoms and signs involving the circulatory and respiratory systems; F17.210 Nicotine dependence, cigarettes, uncomplicated; Z79.899 Other long term (current) drug therapy; I10 Essential (primary) hypertension
CPT/HCPCS: 36415; 71045; 74177; 80053; 82550; 82553; 84484; 85025; 93005; 93010; 99285

== ENCOUNTER 2018-10-20 05:18 | Emergency (ER) | payer MEDICARE, MEDICAID ==
[2018-10-20] MEDS ORDERED: OXYCODONE-ACETAMINOPHEN 5-325 MG TABLET PO ONE (05:42)
[2018-10-20] MEDS ORDERED: ONDANSETRON 4 MG TAB.RAPDIS PO ONE (05:42)
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
--- NOTE | 2018-10-20 06:20 | RADIOLOGY REPORT (SQ) ---
CLINICAL HISTORY: fall, pain COMPARISON: None. TECHNIQUE: XR HIP 2 OR MORE VIEWS 10/20/2018 5:42 AM CDT FINDINGS: There is no fracture. Joint spaces are preserved. Soft tissues are unremarkable. There is a surgical screw through the superior acetabulum. IMPRESSION: No acute osseous findings.
--- NOTE | 2018-10-20 06:21 | RADIOLOGY REPORT (SQ) ---
CLINICAL HISTORY: fall, pain COMPARISON: None. TECHNIQUE: XR KNEE 4 OR MORE VIEWS 10/20/2018 5:42 AM CDT FINDINGS: There is no fracture. Total knee arthroplasty was performed. There is diffuse prepatellar soft tissue swelling. IMPRESSION: No acute osseous findings.
[2018-10-20] MEDS ORDERED: HYDROCODONE/ACETAMINOPHEN 5-325 MG (6 TAB/ER DISP) PO PRN (06:29)
[2018-10-20 06:55] VITALS: BP 122/68
== END 2018-10-20 06:55 | disposition home or self-care (01) ==
LOC: ER 05:18
DX: M25.561 Pain in right knee (principal); M25.551 Pain in right hip; V58.4XXA Person boarding or alighting a pick-up truck or van injured in noncollision transport accident, initial encounter
CPT/HCPCS: 99283; 73502; 73564; A9270 ×3; S0119